=== PATIENT | male | born 1995 | race Caucasian/White ===

== ENCOUNTER 2016-10-04 12:01 | Emergency (ER) | payer BC, OTHER ==
[~2016-10-04] VITALS: Ht 182.9 cm; Wt 111.4 kg
[2016-10-04 12:01] VITALS: BP 146/81
[2016-10-04] MEDS ORDERED: CYCL10TA PO (12:27)
[2016-10-04] MEDS ORDERED: IBUP-1022 PO (12:27)
== END 2016-10-04 12:42 | disposition home or self-care (01) ==
LOC: M ED 12:01
DX: M54.5 Low back pain (principal); G89.29 Other chronic pain

== ENCOUNTER 2017-06-07 10:34 | Emergency (ER) | payer BC | END 2017-06-07 13:09 | disposition home or self-care (01) | LOC: M ED 10:34 | DX: K01.1 Impacted teeth (principal); Z79.899 Other long term (current) drug therapy | CPT/HCPCS: 99282 ==

== ENCOUNTER 2019-05-23 23:12 | Emergency (ER) | payer BC ==
[~2019-05-23] VITALS: Ht 177.8 cm; Wt 129.6 kg
[~2019-05-23 23:12] MED LIST: AUGM875T28 PO; CYCL10TA PO; GABA-843 PO; HYDR-3715 PO; IBUP-1022 PO
[2019-05-23] MEDS ORDERED: VALS1TAB66 (23:28)
[2019-05-23] MEDS ORDERED: CELE1CAP9 (23:28)
[2019-05-24] VITALS: BP 120/56
[2019-05-24] MEDS ORDERED: GI COCKTAIL 50ML BTL(HYOSCYAMINE/MAALOX/LIDOCAINE VISCOUS)(1:3:1) PO ONE (00:15)
[2019-05-24 00:24] LABS: BASO % 0.3 % (0.0-1.0); EOS # 0.1 10^3/uL (0.0-0.5); EOS % 2.2 % (0.0-3.0); HEMOGLOBIN 15.6 g/dl (13.5-17.5); LYMPH # 2.2 10^3/uL (1.5-5.0); LYMPH % 36.5 % (24.0-44.0); MEAN CORPUSCULAR HEMOGLOBIN 32.5 pg (27.0-33.0); MEAN CORPUSCULAR HGB CONC 34.7 g/dl (32.0-36.5); MEAN CORPUSCULAR VOLUME 93.8 fl (80.0-96.0); MONO # 0.4 10^3/uL (0.0-0.8); MONO % 6.7 % (0.0-5.0); NEUTROPHILS # 3.2 10^3/uL (1.5-8.5); PLATELET COUNT, AUTOMATED 269 10^3/uL (150-450)
[2019-05-24 00:30] LABS: BLOOD UREA NITROGEN 10 MG/DL (7-18); CALCIUM LEVEL 8.8 MG/DL (8.5-10.1); CARBON DIOXIDE LEVEL 22 MEQ/L (21-32); CHLORIDE LEVEL 114 MEQ/L (98-107); CPK CREATINE PHOSPHOKINASE 583 U/L (39-308); CREATININE FOR GFR 0.95 MG/DL (0.70-1.30); GLOMERULAR FILTRATION RATE > 60.0 (>60); GLUCOSE, FASTING 91 MG/DL (70-100); MB/CK RELATIVE INDEX 0.34 (< OR =4); POTASSIUM SERUM 5.1 MEQ/L (3.5-5.1); SODIUM LEVEL 143 MEQ/L (136-145); TROPONIN I < 0.02 NG/ML (< 0.10)
[2019-05-24 00:59] LABS: ALBUMIN 4.1 GM/DL (3.2-5.2); ALT/SGPT 64 U/L (12-78); BILIRUBIN,DIRECT < 0.1 MG/DL (0.0-0.2); BILIRUBIN,TOTAL 0.4 MG/DL (0.2-1.0); LIPASE 119 U/L (73-393)
[2019-05-24] MEDS ORDERED: NS 1,000 ML IV ONE (01:15)
[2019-05-24 01:22] LABS: ETHYL ALCOHOL (ETHANOL) 0.275 % (0.000-0.010)
[2019-05-24] MEDS ORDERED: ISOVUE-370 76% 100ML VIAL (Q9967) As Ordered ONE (02:16)
--- NOTE | 2019-05-24 02:50 | REPVR ---
PROCEDURE INFORMATION: Exam: CT Angiography Chest With Contrast Exam date and time: 05/24/2019 2:11 AM Age: 23 years old Clinical indication: Chest pain; Type not specified; Additional info: Chest pain/abdominal pain TECHNIQUE: Imaging protocol: Computed tomographic angiography of the chest with intravenous contrast. 3D rendering: MIP and/or 3D reconstructed images were created by the technologist. Radiation optimization: All CT scans at this facility use at least one of these dose optimization techniques: automated exposure control; mA and/or kV adjustment per patient size (includes targeted exams where dose is matched to clinical indication); or iterative reconstruction. Contrast material: ISO; Contrast volume: 100 ml; Contrast route: AC; COMPARISON: CR PORTABLE CHEST X-RAY 05/23/2019 11:39 PM FINDINGS: Pulmonary arteries: Aberrant aorta and pulmonary artery. The aorta is tortuous. The main pulmonary artery extends toward the right of the aortic arch and then divides with the left main pulmonary artery extending along the arch toward the left and the right pulmonary artery extending along the right aspect of the arch into the right lung. The main pulmonary artery measures 22 mm. No pulmonary embolism is identified. Aorta: The ascending thoracic aorta measures 41 mm. Other arteries: The left vertebral artery originates directly from the arch. Lungs: Mild dependent atelectasis in the lower lobes. Minimal ground-glass infiltrates are not excluded. Pleural space: Unremarkable. No pneumothorax. No pleural effusion. Heart: Unremarkable. No cardiomegaly. No pericardial effusion. Lymph nodes: Unremarkable. No enlarged lymph nodes. Bones/joints: Unremarkable. No acute fracture. Soft tissues: Unremarkable. IMPRESSION: 1. 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 2. Mild bilateral lower lobe dependent atelectasis. Minimal ground-glass infiltrates are not excluded. 3. Otherwise negative CTA chest. No pulmonary embolism is identified. Electronically signed by: Zheng Mchugh On 05/24/2019 02:50:17 AM
--- NOTE | 2019-05-24 02:54 | REPVR ---
PROCEDURE INFORMATION: Exam: CT Abdomen And Pelvis With Contrast Exam date and time: 05/24/2019 2:11 AM Age: 23 years old Clinical indication: Abdominal pain; Generalized; Additional info: Chest pain/abdominal pain TECHNIQUE: Imaging protocol: Computed tomography of the abdomen and pelvis with intravenous contrast. Radiation optimization: All CT scans at this facility use at least one of these dose optimization techniques: automated exposure control; mA and/or kV adjustment per patient size (includes targeted exams where dose is matched to clinical indication); or iterative reconstruction. Contrast material: ISO; Contrast volume: 100 ml; Contrast route: AC; COMPARISON: No relevant prior studies available. FINDINGS: Lungs: Dependent atelectasis in the lower lobes. Liver: The liver attenuation is 61 Hounsfield units and the spleen is 92 Hounsfield units. Gallbladder and bile ducts: Normal. No calcified stones. No ductal dilation. Pancreas: Normal. No ductal dilation. Spleen: Normal. No splenomegaly. Adrenals: Normal. No mass. Kidneys and ureters: Normal. No hydronephrosis. Stomach and bowel: Unremarkable. No obstruction. No mucosal thickening. Appendix: A normal appendix is seen. Intraperitoneal space: Somewhat marginated induration of central mesentery. Vasculature: Unremarkable. No abdominal aortic aneurysm. Lymph nodes: Unremarkable. No enlarged lymph nodes. Bladder: Unremarkable as visualized. Reproductive: Unremarkable as visualized. Bones/joints: Unremarkable. No acute fracture. Soft tissues: Unremarkable. IMPRESSION: 1. Slightly marginated induration of central mesentery which may reflect minimal mesenteric panniculitis. 2. Otherwise negative CT abdomen/pelvis. Electronically signed by: Zheng Mchugh On 05/24/2019 02:54:35 AM
[2019-05-24] MEDS ORDERED: OMEP40CA97 PO (03:43)
[2019-05-24] MEDS ORDERED: SUCR1TA PO (03:43)
--- NOTE | 2019-05-24 07:13 | REP ---
Clinical: Acute chest pain . Comparison: None . Findings: The mediastinum and cardiac silhouette are stable and within normal limits for portable technique. The lung cintron are clear without acute consolidation, effusion, or pneumothorax. Skeletal structures are intact. Impression: No acute cardiopulmonary process appreciated. Electronically Signed by Lisandro Cardenas MD 05/24/2019 07:04 A
--- NOTE | 2019-05-24 12:19 | ECGEPIP ---
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
--- NOTE | 2019-05-25 14:06 | ED PDOC ---
Post-Departure Follow-Up dr mejía faxed formal report of ct abd/p for fu Brian Priest MD May 25, 2019 14:06
--- NOTE | 2019-05-25 14:06 | ED PDOC ---
Post-Departure Follow-Up dr mejía also faxed formal report of cta chest for fu Brian Priest MD May 25, 2019 14:06
== END 2019-05-24 04:05 | disposition home or self-care (01) ==
LOC: M ED 23:12 → EDBD 23:12 → M ED 05-24 04:05
DX: K21.9 Gastro-esophageal reflux disease without esophagitis (principal); K29.70 Gastritis, unspecified, without bleeding; I25.10 Atherosclerotic heart disease of native coronary artery without angina pectoris; Z79.899 Other long term (current) drug therapy
CPT/HCPCS: 71045; 71275; 74177; 80048; 80076; 82550; 82553; 83690; 84484; 85025; 93005; 93041; 94760; 96360; 96361; 99285; G0480; Q9967

== ENCOUNTER → 2019-06-06 | Outpatient (CLI) | payer BC ==
[~2019-06-06] MED LIST changes: +CELE1CAP9; +OMEP40CA97 PO; +SUCR1TA PO; +VALS1TAB66
== END ==
LOC: M LABSMTC 11:31
PROVIDERS: ATTEND Family Medicine
DX: Z11.59 Encounter for screening for other viral diseases (principal); Z20.828 Contact with and (suspected) exposure to other viral communicable diseases

== ENCOUNTER → 2019-07-07 | Outpatient (REF) | payer BC ==
[~2019-07-07] MED LIST changes: +CYCL-707 PO; -CYCL10TA PO
== END ==
LOC: M LAB REF 17:13
PROVIDERS: ATTEND Nurse Practitioner Adult Health
DX: N52.9 Male erectile dysfunction, unspecified (principal); Z83.2 Family history of diseases of the blood and blood-forming organs and certain disorders involving the immune mechanism

== ENCOUNTER → 2019-10-05 | Outpatient (CLI) | payer BC ==
[2019-11-04 13:01] LABS: COLLAGEN EPINEPHRINE 142 SECONDS (74-162)
[2019-11-04 13:02] LABS: INR 1.07; PROTHROMBIN TIME 14.1 SECONDS (11.8-14.0)
[2019-11-04 13:05] LABS: PLATELET COUNT, AUTOMATED 232 10^3/uL (150-450)
== END ==
LOC: M LAB 12:16
PROVIDERS: ATTEND Physician Assistant
DX: M51.37 Other intervertebral disc degeneration, lumbosacral region (principal)

== ENCOUNTER → 2019-11-28 | Outpatient (REF) | payer BC ==
[2019-11-28 18:41] LABS: HEPATITIS C VIRUS ABY INDEX 0.1 INDEX (<0.8)
== END ==
LOC: M LAB REF 17:26
PROVIDERS: ATTEND Nurse Practitioner Adult Health
DX: L81.8 Other specified disorders of pigmentation (principal); R19.7 Diarrhea, unspecified; I10 Essential (primary) hypertension; Z87.74 Personal history of (corrected) congenital malformations of heart and circulatory system

== ENCOUNTER → 2020-03-22 | Outpatient (CLI) | payer BC ==
[~2020-03-22] MED LIST changes: +E-Z-PAQUE 96% w/w SUSP 176GM BTL As Ordered ONE; +GABA-282 PO; -GABA-843 PO
[2020-03-22 09:23] LABS: FREE T4 0.92 NG/DL (0.76-1.46); THYROID STIMULATING HORMONE 1.31 uIU/ML (0.358-3.740)
--- NOTE | 2020-03-22 17:52 | REP ---
INDICATION: [facility]. COMPARISON: None TECHNIQUE: This procedure was performed by ANASTASIA oYung, under the direct supervision of Dr. Hopkins. Images were reviewed with Dr. Hopkins prior to dictation. Liquid barium was administered and the barium column was followed through the small bowel to the level of the terminal ileum. FINDINGS: The medicine technologist film shows no organomegaly or pathological masses. The intestinal gas pattern is unremarkable. Small bowel transit time is approximately 120 minutes. During fluoroscopy gentle palpation shows all loops are freely movable and pliable. There is no fixed angulated loops. The small bowel mucosal pattern is normal in course and caliber. There is no transition to suggest a partial small bowel obstruction. Spot filming of the terminal ileum shows it to be unremarkable. IMPRESSION: Unremarkable small bowel follow-through. 0.4 minutes of fluoroscopy time was utilized for this procedure. Some fluoroscopic images are performed with last image hold technology. These images require no additional radiation. <Electronically signed by Veronica Corrigan > 03/22/20 1341 <Electronically signed by Herberth Hopkins > 03/22/20 [id number]
== END ==
LOC: M RAD 07:41 → M LAB 07:41
PROVIDERS: ATTEND Internal Medicine Gastroenterology
DX: R19.7 Diarrhea, unspecified (principal)

== ENCOUNTER → 2020-03-25 | Outpatient (REF) | payer BC ==
[~2020-03-25] MED LIST changes: -E-Z-PAQUE 96% w/w SUSP 176GM BTL As Ordered ONE
== END ==
LOC: M LAB REF 11:12
PROVIDERS: ATTEND Internal Medicine Gastroenterology
DX: R19.7 Diarrhea, unspecified (principal)

== ENCOUNTER → 2020-05-05 | Outpatient (CLI) | payer BC | LOC: M LABSMTC 08:42 | PROVIDERS: ATTEND Anesthesiology | DX: Z01.812 Encounter for preprocedural laboratory examination (principal); Z20.822 Contact with and (suspected) exposure to COVID-19 ==

== ENCOUNTER 2020-05-10 11:54 | Day surgery (SDC) | payer BC ==
[~2020-05-10] VITALS: Ht 182.9 cm; Wt 122.0 kg
[~2020-05-10 11:54] MED LIST changes: +BUSP5TA; +NS 1,000 ML IV ONE; +PREG150C; +TRAM50TA2
[2020-05-10] MEDS ORDERED: fentaNYL 100 MCG/2 ML INJECTION (J3010) As Ordered ONE (12:53)
[2020-05-10] MEDS ORDERED: propofoL 200 MG/20 ML VIAL As Ordered ONE (12:53)
[2020-05-10] MEDS ORDERED: LIDOCAINE 2% 100MG/5ML SDV (FOR ANES.) As Ordered ONE (12:53)
--- NOTE | 2020-05-10 13:37 | ROOR ---
Patient Name: Nile Khalil Procedure Date: 05/10/2020 1:23 PM Date of : 1995 Age: 24 Room: [facility] Gender: Male Note Status: Finalized Procedure: Upper GI endoscopy Indications: Epigastric abdominal pain Providers: Lester DAWN MD Referring MD: Marily Hall NP Requesting Provider: Medicines: Monitored Anesthesia Care Complications: No immediate complications. Procedure: Pre-Anesthesia Assessment: - The heart rate, respiratory rate, oxygen saturations, blood pressure, adequacy of pulmonary ventilation, and response to care were monitored throughout the procedure. The Endoscope was introduced through the mouth, and advanced to the second part of duodenum. The upper GI endoscopy was accomplished without difficulty. The patient tolerated the procedure well. Findings: The examined esophagus was normal. The entire examined stomach was normal. The examined duodenum was normal. Impression: - Normal esophagus. - Normal stomach. - Normal examined duodenum. - No specimens collected. Recommendation: - Follow an antireflux regimen. - Observe patient's clinical course. Procedure Code(s): --- Professional --- 34534, Esophagogastroduodenoscopy, flexible, transoral; diagnostic, including collection of specimen(s) by brushing or washing, when performed (separate procedure) Diagnosis Code(s): --- Professional --- R10.13, Epigastric pain CPT copyright 2019 [employer]. All rights reserved. The codes documented in this report are preliminary and upon keyboard instrument tuner review may be revised to meet current compliance requirements. Lester Dawn MD Lester DAWN MD 05/10/2020 1:36:39 PM Electronically signed by Lester DAWN MD Number of Addenda: 0 Note Initiated On: 05/10/2020 1:23 PM Estimated Blood Loss: Estimated blood loss: none.
--- NOTE | 2020-05-10 13:56 | ROOR ---
Patient Name: Nile Khalil Procedure Date: 05/10/2020 1:24 PM Date of : 1995 Age: 24 Room: [facility] Gender: Male Note Status: Finalized Procedure: Colonoscopy Indications: Chronic diarrhea Providers: Lester DAWN MD Referring MD: Marily Hall NP Requesting Provider: Medicines: Monitored Anesthesia Care Complications: No immediate complications. Procedure: Pre-Anesthesia Assessment: - The heart rate, respiratory rate, oxygen saturations, blood pressure, adequacy of pulmonary ventilation, and response to care were monitored throughout the procedure. The Colonoscope was introduced through the anus and advanced to 10 cm into the ileum. The colonoscopy was performed without difficulty. The patient tolerated the procedure well. The quality of the bowel preparation was good. Findings: The perianal and digital rectal examinations were normal. A 5 mm polyp was found in the proximal/upper rectum. The polyp was semi-pedunculated. The polyp was removed with a hot snare. Resection and retrieval were complete. The exam was otherwise normal throughout the examined colon. The terminal ileum appeared normal. Biopsies for histology were taken with a cold forceps from the entire colon for evaluation of microscopic colitis. Fluid aspiration for Clostridium difficile was performed. Impression: - One 5 mm polyp in the rectum, removed with a hot snare. Resected and retrieved. - The examined portion of the ileum was normal. - Biopsies were taken with a cold forceps from the entire colon for evaluation of microscopic colitis. - Fluid aspiration was performed. Recommendation: - Telephone endoscopist for pathology results in 2 weeks. Procedure Code(s): --- Professional --- 53429, Colonoscopy, flexible; with removal of tumor(s), polyp(s), or other lesion(s) by snare technique 96358, 59, Colonoscopy, flexible; with biopsy, single or multiple Diagnosis Code(s): --- Professional --- K52.9, Noninfective gastroenteritis and colitis, unspecified K62.1, Rectal polyp CPT copyright 2019 [employer]. All rights reserved. The codes documented in this report are preliminary and upon creative arts therapist review may be revised to meet current compliance requirements. eLster Dawn MD Lester DAWN MD 05/10/2020 1:55:54 PM Electronically signed by Lester DAWN MD Number of Addenda: 0 Note Initiated On: 05/10/2020 1:24 PM Estimated Blood Loss: Estimated blood loss: none.
[2020-05-10 14:10] VITALS: BP 130/63
[2020-05-10 15:36] LABS: CLOSTRIDIUM DIFFICILE PCR POSITIVE (NEGATIVE)
== END 2020-05-10 14:18 | disposition home or self-care (01) ==
LOC: M OPP 11:54
PROVIDERS: ATTEND Internal Medicine Gastroenterology
DX: K62.1 Rectal polyp (principal); K52.9 Noninfective gastroenteritis and colitis, unspecified; R10.13 Epigastric pain; F17.220 Nicotine dependence, chewing tobacco, uncomplicated; I10 Essential (primary) hypertension; Z80.0 Family history of malignant neoplasm of digestive organs; Z79.891 Long term (current) use of opiate analgesic; Z79.899 Other long term (current) drug therapy; Z88.0 Allergy status to penicillin
CPT/HCPCS: 43235; 45380; 45385; 87493; 88305; J3010

== ENCOUNTER 2020-06-25 08:49 | Emergency (ER) | payer BC ==
[~2020-06-25] VITALS: Ht 182.9 cm; Wt 120.5 kg
[~2020-06-25 08:49] MED LIST changes: -NS 1,000 ML IV ONE
[2020-06-25] MEDS ORDERED: NS 1,000 ML IV ONE (09:25)
[2020-06-25 10:21] LABS: BASO % 0.3 % (0.0-1.0); EOS # 0.1 10^3/uL (0.0-0.5); EOS % 1.1 % (0.0-3.0); HEMATOCRIT 52.2 % (42.0-52.0); HEMOGLOBIN 17.3 g/dl (13.5-17.5); LYMPH # 1.1 10^3/uL (1.5-5.0); LYMPH % 14.2 % (24.0-44.0); MEAN CORPUSCULAR HEMOGLOBIN 30.6 pg (27.0-33.0); MEAN CORPUSCULAR HGB CONC 33.1 g/dl (32.0-36.5); MEAN CORPUSCULAR VOLUME 92.2 fl (80.0-96.0); MONO # 0.4 10^3/uL (0.0-0.8); MONO % 4.4 % (2.0-8.0); NEUTROPHILS # 6.3 10^3/uL (1.5-8.5); NEUTROPHILS % 79.7 % (36.0-66.0); PLATELET COUNT, AUTOMATED 303 10^3/uL (150-450); RED BLOOD COUNT 5.66 10^6/uL (4.30-6.10); WHITE BLOOD COUNT 7.9 10^3/uL (4.0-10.0)
[2020-06-25 11:01] LABS: ALBUMIN 4.6 GM/DL (3.2-5.2); ALT/SGPT 48 U/L (12-78); AMYLASE 55 U/L (25-115); BILIRUBIN,DIRECT 0.3 MG/DL (0.0-0.2); BILIRUBIN,TOTAL 1.1 MG/DL (0.2-1.0); CK-MB VALUE MASS 1.1 NG/ML (<3.6); CPK CREATINE PHOSPHOKINASE 147 U/L (39-308); FREE T4 1.05 NG/DL (0.76-1.46); LIPASE 76 U/L (73-393); MB/CK RELATIVE INDEX 0.75 (< OR =4); TOTAL PROTEIN 8.3 GM/DL (6.4-8.2); TROPONIN I < 0.02 NG/ML (< 0.10)
[2020-06-25] MEDS ORDERED: KETOROLAC 30 MG/ML 1ML VIAL IV ONE (11:20)
[2020-06-25] MEDS ORDERED: ISOVUE-370 76% 100ML VIAL As Ordered ONE (12:04)
--- NOTE | 2020-06-25 12:37 | REP ---
INDICATION: LLQ pain, h/o c.diff. COMPARISON: Comparison CT study May 24, 2019.. TECHNIQUE: Helical scanning was acquired and 4 mm axial images are re-formatted. Coronal and sagittal MPR images were generated and reviewed. The contrast enhancement dose is 100 mL of intravenous Isovue 370. FINDINGS: Preliminary digital reefer truck driver radiograph demonstrates an unremarkable bowel gas pattern. Cardiac silhouette is prominent as on chest x-ray May 23, 2019. On axial CT images, the lung bases are clear. There is no evidence of pleural effusion or upper abdominal ascites. The liver is normal in size homogeneous in texture. spleen size is borderline but the spleen is homogeneous. No focal lesion. There is a small accessory splenule. Normal adrenal glands are observed. No abnormality is noted in the pancreas or in the gallbladder. The kidneys enhance symmetrically and are morphologically intact. No retroperitoneal mass or adenopathy is seen. Small and large intestinal bowel loops are unremarkable in the upper abdomen. Pelvic CT images demonstrate a normal appendix in the right lower mid pelvis. Small and large bowel loops are unremarkable in the pelvis. Urinary bladder, seminal vesicles, and prostate are unremarkable. No abdominal wall defect is seen. Bone window settings show mild degenerative disc narrowing at L5-S1. No bony destructive lesion is seen. IMPRESSION: No acute intra-abdominal or pelvic abnormality. Normal appendix. <Electronically signed by Da Lester > 06/25/20 [id number]
[2020-06-25 15:07] VITALS: BP 155/74
--- NOTE | 2020-06-27 12:18 | ECGEPIP ---
[facility] - ED Test Date: 2020-06-25 Pat Name: BERNICE FLORENTINO Department: Room: - Gender: Male Adult Care Provider: judie : 1995 Requested By: MARCELINA English PA-C Order Number: [id number] Reading MD: Magaly Anthony Measurements Intervals [place] Rate: 66 P: 23 ID: 140 QRS: 50 QRSD: 82 T: 76 QT: 404 QTc: 423 Interpretive Statements Normal sinus rhythm NSTTW abnormalities decreased rate 05/23/19 Electronically Signed on 06-27-2020 12:18:50 EDT by Magaly Anthony
== END 2020-06-25 15:09 | disposition home or self-care (01) ==
LOC: M ED 08:49
DX: R10.9 Unspecified abdominal pain (principal); R42 Dizziness and giddiness; R19.7 Diarrhea, unspecified; R79.89 Other specified abnormal findings of blood chemistry; R94.31 Abnormal electrocardiogram [ECG] [EKG]; I10 Essential (primary) hypertension; K21.9 Gastro-esophageal reflux disease without esophagitis; Z87.74 Personal history of (corrected) congenital malformations of heart and circulatory system; Z87.19 Personal history of other diseases of the digestive system; Z86.19 Personal history of other infectious and parasitic diseases; Z98.890 Other specified postprocedural states
CPT/HCPCS: 36415; 74177; 80047; 80076; 81001; 82150; 82550; 82553; 83690; 84439; 84443; 84484; 85025; 87040; 87798; 93005; 96361; 96374; 99284; J1885; Q9967

== ENCOUNTER 2020-08-01 08:56 | Emergency (ER) | payer BC ==
[~2020-08-01] VITALS: Ht 180.3 cm; Wt 121.1 kg
[2020-08-01 09:57] LABS: HEMATOCRIT 47.2 % (42.0-52.0); HEMOGLOBIN 15.6 g/dl (13.5-17.5); MEAN CORPUSCULAR HEMOGLOBIN 30.2 pg (27.0-33.0); MEAN CORPUSCULAR HGB CONC 33.1 g/dl (32.0-36.5); MEAN CORPUSCULAR VOLUME 91.3 fl (80.0-96.0); PLATELET COUNT, AUTOMATED 233 10^3/uL (150-450); RED BLOOD COUNT 5.17 10^6/uL (4.30-6.10); WHITE BLOOD COUNT 4.9 10^3/uL (4.0-10.0)
[2020-08-01 10:15] LABS: AMPHETAMINES LEVEL URINE NEGATIVE (NEGATIVE); BARBITURATES URINE NEGATIVE (NEGATIVE); BENZODIAZEPINES URINE POSITIVE (NEGATIVE); CANNABINOIDS URINE POSITIVE (NEGATIVE); COCAINE METABOLITE URINE NEGATIVE (NEGATIVE); METHADONE URINE NEGATIVE (NEGATIVE); OPIATES URINE NEGATIVE (NEGATIVE); PHENCYCLIDINE URINE NEGATIVE (NEGATIVE)
[2020-08-01 10:28] LABS: ACETAMINOPHEN LEVEL < 2.0 UG/ML (10.0-30.0); ALBUMIN 4.1 GM/DL (3.2-5.2); ALT/SGPT 43 U/L (12-78); BILIRUBIN,DIRECT 0.2 MG/DL (0.0-0.2); BLOOD UREA NITROGEN 13 MG/DL (7-18); CALCIUM LEVEL 9.2 MG/DL (8.5-10.1); CARBON DIOXIDE LEVEL 26 MEQ/L (21-32); CHLORIDE LEVEL 109 MEQ/L (98-107); ETHYL ALCOHOL (ETHANOL) < 0.003 % (0.000-0.010); GLOMERULAR FILTRATION RATE > 60.0 (>60); GLUCOSE, FASTING 114 MG/DL (70-100); POTASSIUM SERUM 4.9 MEQ/L (3.5-5.1); SALICYLATE LEVEL < 1.7 MG/DL (5.0-30.0); SODIUM LEVEL 140 MEQ/L (136-145); TOTAL PROTEIN 7.5 GM/DL (6.4-8.2)
[2020-08-01] MEDS ORDERED: ALPRAZolam 0.5 MG TAB PO ONE ×2 (14:30→21:40)
[2020-08-01] MEDS ORDERED: KETOROLAC TROMETHAMINE 10 MG TAB PO ONE (17:00)
[2020-08-01 17:11] VITALS: BP 116/64
[2020-08-01] MEDS ORDERED: NICOTINE 21MG/24HR 1 EA TRANSDERMAL TD ONE (18:00)
[2020-08-01 19:10] LABS: RSV AMPLIFICATION NEGATIVE (NEGATIVE)
[2020-08-01] MEDS ORDERED: NICOTINE POLACRILEX 2 MG GUM PO ONE (19:50)
[2020-08-01] MEDS ORDERED: ACETAMINOPHEN TAB 650MG DOSE (2X325MG) PO ONE (19:50)
--- NOTE | 2020-08-01 20:00 | ECGEPIP ---
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
== END 2020-08-02 00:04 ==
LOC: M ED 08:56
DX: R45.851 Suicidal ideations (principal); F43.10 Post-traumatic stress disorder, unspecified; F33.9 Major depressive disorder, recurrent, unspecified; I10 Essential (primary) hypertension; K21.9 Gastro-esophageal reflux disease without esophagitis; Z88.0 Allergy status to penicillin

== ENCOUNTER → 2021-04-18 | Outpatient (CLI) | payer BC ==
[~2021-04-18] MED LIST changes: +OMEP40CA4 PO; -OMEP40CA97 PO
[2021-04-18 11:58] LABS: APPEARANCE, URINE CLEAR (CLEAR); BACTERIA, URINE AUTO NEGATIVE (NEGATIVE); BILIRUBIN, URINE AUTO NEGATIVE (NEGATIVE); BLOOD, URINE BLOOD NEGATIVE (NEGATIVE); COLOR, URINE YELLOW (YELLOW); GLUCOSE, URINE (UA) AUTO NEGATIVE (NEGATIVE); KETONE, URINE AUTO NEGATIVE (NEGATIVE); LEUKOCYTE ESTERASE, URINE AUTO NEGATIVE (NEGATIVE); NITRITE, URINE AUTO NEGATIVE (NEGATIVE); PROTEIN, URINE AUTO NEGATIVE (NEGATIVE); RBC, URINE AUTO 1 /HPF (0-3); SPECIFIC GRAVITY URINE AUTO 1.016 (1.002-1.035); SQUAMOUS EPITHELIAL CELL UR AU 0 /HPF (0-6); UROBILINOGEN, URINE AUTO 0.2 mg/dL (0.0-2.0); WBC, URINE AUTO 0 /HPF (0-3)
[2021-04-18 12:42] LABS: ALBUMIN 4.4 GM/DL (3.2-5.2); ALT/SGPT 43 U/L (12-78); BILIRUBIN,TOTAL 0.7 MG/DL (0.2-1.0); BLOOD UREA NITROGEN 15 MG/DL (7-18); CALCIUM LEVEL 9.9 MG/DL (8.5-10.1); CARBON DIOXIDE LEVEL 26 MEQ/L (21-32); CHLORIDE LEVEL 105 MEQ/L (98-107); CREATININE FOR GFR 1.26 MG/DL (0.70-1.30); FERRITIN 72 NG/ML (26-388); GLOMERULAR FILTRATION RATE > 60.0 (>60); GLUCOSE, FASTING 85 MG/DL (70-100); IRON (FE) 133 UG/DL (65-175); LIPASE 84 U/L (73-393); PERCENT SATURATION 34.2 % (19.7-50.0); POTASSIUM SERUM 4.5 MEQ/L (3.5-5.1); SODIUM LEVEL 139 MEQ/L (136-145); TOTAL IRON BINDING CAPACITY 389 UG/DL (250-450)
== END ==
LOC: M RAD 09:08
PROVIDERS: ATTEND Physician Assistant
DX: R10.31 Right lower quadrant pain (principal); N50.811 Right testicular pain

== ENCOUNTER 2022-10-03 06:42 | Emergency (ER) | payer BC ==
[~2022-10-03] VITALS: Ht 177.8 cm; Wt 118.1 kg
[2022-10-03] MEDS ORDERED: HYDR-3363 PO (09:01)
[2022-10-03] MEDS ORDERED: CEPH250T PO (09:04)
[2022-10-03 09:34] VITALS: BP 146/84; TEMP 97.6; O2SAT 97
== END 2022-10-03 09:36 | disposition home or self-care (01) ==
LOC: M ED 06:42 → EDBD 06:42 → M ED 09:36
DX: L73.9 Follicular disorder, unspecified (principal); I10 Essential (primary) hypertension; F41.9 Anxiety disorder, unspecified; Z88.0 Allergy status to penicillin

== ENCOUNTER → 2023-03-18 | Outpatient (CLI) | payer BC ==
[~2023-03-18] MED LIST changes: +CELE0.09; -CELE1CAP9; +CEPH250T PO; +HYDR-3363 PO; -PREG150C; +PREG150C2
== END ==
LOC: M PLAIMG 09:14
PROVIDERS: ATTEND Family Medicine
DX: F10.90 Alcohol use, unspecified, uncomplicated (principal); R10.84 Generalized abdominal pain; M54.6 Pain in thoracic spine; Z53.9 Procedure and treatment not carried out, unspecified reason

== ENCOUNTER → 2023-03-19 | Outpatient (CLI) | payer BC ==
[2023-03-19 09:57] LABS: BASO % 0.4 % (0.0-1.0); EOS # 0.1 10^3/uL (0.0-0.5); EOS % 2.1 % (0.0-3.0); HEMOGLOBIN 16.2 g/dl (13.5-17.5); LYMPH # 1.5 10^3/uL (1.5-5.0); LYMPH % 29.4 % (24.0-44.0); MEAN CORPUSCULAR HEMOGLOBIN 31.2 pg (27.0-33.0); MEAN CORPUSCULAR HGB CONC 33.8 g/dl (32.0-36.5); MEAN CORPUSCULAR VOLUME 92.5 fl (80.0-96.0); MONO # 0.5 10^3/uL (0.0-0.8); MONO % 9.7 % (2.0-8.0); PLATELET COUNT, AUTOMATED 215 10^3/uL (150-450); RED BLOOD COUNT 5.19 10^6/uL (4.30-6.10); WHITE BLOOD COUNT 5.1 10^3/uL (4.0-10.0)
[2023-03-19 10:11] LABS: INR 1.11
[2023-03-19 10:20] LABS: ALBUMIN 4.3 G/DL (3.2-5.2); ALKALINE PHOSPHATASE 58 U/L (46-116); ALT/SGPT 68 U/L (7.0-40); AST/SGOT 26 U/L (<34); BILIRUBIN,TOTAL 0.7 MG/DL (0.3-1.2); BLOOD UREA NITROGEN 17 MG/DL (9-23); CALCIUM LEVEL 9.8 MG/DL (8.5-10.1); CARBON DIOXIDE LEVEL 28 MMOL/L (20-31); CHLORIDE LEVEL 104 MMOL/L (98-107); CHOLESTEROL LEVEL 168 MG/DL (<200); CHOLESTEROL RISK RATIO 2.96 (<5); CREATININE FOR GFR 0.99 MG/DL (0.70-1.30); GLOMERULAR FILTRATION RATE > 60.0 (>60); GLUCOSE, FASTING 88 MG/DL (60-100); HDL CHOLESTEROL 56.6 MG/DL (>40); LDL CHOLESTEROL 84.4 MG/DL (<100); NON-HDL-C 111.4 MG/DL; POTASSIUM SERUM 4.5 MMOL/L (3.5-5.1); SODIUM LEVEL 139 MMOL/L (136-145); TOTAL PROTEIN 7.4 G/DL (5.7-8.2); TRIGLYCERIDES LEVEL 135 MG/DL (<150)
== END ==
LOC: M PLAIMG 07:55
PROVIDERS: ATTEND Family Medicine
DX: M54.6 Pain in thoracic spine (principal); R10.84 Generalized abdominal pain; F10.90 Alcohol use, unspecified, uncomplicated

== ENCOUNTER → 2023-03-19 | Outpatient (CLI) | payer BC | LOC: M RAD 07:24 | PROVIDERS: ATTEND Family Medicine | DX: F10.90 Alcohol use, unspecified, uncomplicated (principal); R10.84 Generalized abdominal pain; K76.0 Fatty (change of) liver, not elsewhere classified ==

== ENCOUNTER → 2023-04-16 | Outpatient (CLI) | payer BC | LOC: M PLAIMG 12:09 | PROVIDERS: ATTEND Family Medicine | DX: M50.121 Cervical disc disorder at C4-C5 level with radiculopathy (principal); M47.814 Spondylosis without myelopathy or radiculopathy, thoracic region; M51.24 Other intervertebral disc displacement, thoracic region ==

== ENCOUNTER → 2023-06-02 | Outpatient (CLI) | payer BC ==
[2023-06-02 16:10] LABS: ALBUMIN 4.2 G/DL (3.2-5.2); ALKALINE PHOSPHATASE 65 U/L (46-116); ALT/SGPT 97 U/L (7.0-40); AST/SGOT 31 U/L (<34); BILIRUBIN,TOTAL 0.7 MG/DL (0.3-1.2); BLOOD UREA NITROGEN 14 MG/DL (9-23); CALCIUM LEVEL 9.7 MG/DL (8.5-10.1); CARBON DIOXIDE LEVEL 29 MMOL/L (20-31); CHLORIDE LEVEL 106 MMOL/L (98-107); CREATININE FOR GFR 0.96 MG/DL (0.70-1.30); GLOMERULAR FILTRATION RATE > 60.0 (>60); GLUCOSE, FASTING 84 MG/DL (60-100); POTASSIUM SERUM 4.1 MMOL/L (3.5-5.1); SODIUM LEVEL 141 MMOL/L (136-145); TOTAL PROTEIN 7.1 G/DL (5.7-8.2)
== END ==
LOC: M PLALAB 14:39
PROVIDERS: ATTEND Family Medicine
DX: I10 Essential (primary) hypertension (principal); E66.9 Obesity, unspecified

== ENCOUNTER → 2023-08-27 | Outpatient (CLI) | payer BC | LOC: M RAD 07:31 | PROVIDERS: ATTEND Family Medicine | DX: I10 Essential (primary) hypertension (principal) ==

== ENCOUNTER → 2024-02-02 | Outpatient (REF) | payer BC ==
[~2024-02-02] MED LIST changes: +GABA-1172 PO; -GABA-282 PO
== END ==
LOC: M SMT 12:56
PROVIDERS: ATTEND Urology
DX: Z30.2 Encounter for sterilization (principal)

== ENCOUNTER → 2024-03-30 | Outpatient (REF) | payer BC ==
[2024-03-30 13:57] LABS: SEMEN APPEARANCE OPAQUE (OPAQUE); SEMEN VISCOSITY LIQUID (LIQUID); SEMEN VOLUME 1.4 ml (2.0-5.0); SEMEN pH 8.5 (7.0-8.0); WBC CONCENTRATION <=1 M/ml (<=1 M/ml)
== END ==
LOC: M SMT 13:29
PROVIDERS: ATTEND Urology
DX: Z30.2 Encounter for sterilization (principal)

== ENCOUNTER 2024-12-16 23:19 | Emergency (ER) | payer BC ==
[~2024-12-16] VITALS: Ht 177.8 cm; Wt 115.9 kg
[~2024-12-16 23:19] MED LIST changes: -IBUP-1022 PO; +IBUP600T42 PO
[2024-12-17] MEDS: NS (Normal Saline) 0.9% 1,000 ML IV ONE (00:33)
[2024-12-17 00:38] LABS: BASO # 0.1 10^3/uL (0.0-0.2); BASO % 0.6 % (0.0-1.0); EOS # 0.8 10^3/uL (0.0-0.5); EOS % 8.6 % (0.0-3.0); LYMPH # 3.5 10^3/uL (1.5-5.0); LYMPH % 38.6 % (24.0-44.0); MONO # 0.6 10^3/uL (0.0-0.8); MONO % 6.3 % (2.0-8.0); NEUTROPHILS # 4.1 10^3/uL (1.5-8.5); NEUTROPHILS % 45.5 % (36.0-66.0); PLATELET COUNT, AUTOMATED 294 10^3/uL (150-450)
[2024-12-17 00:58] LABS: ETHYL ALCOHOL (ETHANOL) 0.207 % (0.000-0.010)
[2024-12-17 01:00] LABS: ALT/SGPT 57 U/L (7.0-40); AST/SGOT 31 U/L (<34); CALCIUM LEVEL 8.9 MG/DL (8.5-10.1); CARBON DIOXIDE LEVEL 20 MMOL/L (20-31); CHLORIDE LEVEL 107 MMOL/L (98-107); CREATININE FOR GFR 0.79 MG/DL (0.70-1.30); GLOMERULAR FILTRATION RATE > 90.0 (>60); POTASSIUM SERUM 4.7 MMOL/L (3.5-5.1); SALICYLATE LEVEL < 3.0 MG/DL (<30); SODIUM LEVEL 141 MMOL/L (136-145)
[2024-12-17 01:02] LABS: CPK CREATINE PHOSPHOKINASE 103 U/L (46-171)
[2024-12-17 01:26] LABS: AMPHETAMINES LEVEL URINE NEGATIVE (NEGATIVE); BARBITURATES URINE NEGATIVE (NEGATIVE); BENZODIAZEPINES URINE NEGATIVE (NEGATIVE); CANNABINOIDS URINE NEGATIVE (NEGATIVE); COCAINE METABOLITE URINE NEGATIVE (NEGATIVE); METHADONE URINE NEGATIVE (NEGATIVE); OPIATES URINE NEGATIVE (NEGATIVE); PHENCYCLIDINE URINE NEGATIVE (NEGATIVE)
[2024-12-17] MEDS: OVERDOSE RESCUE KIT XX SCH (08:33)
[2024-12-17 08:40] VITALS: BP 126/60; TEMP 98.6; O2SAT 100
== END 2024-12-17 08:43 | disposition home or self-care (01) ==
LOC: M ED 23:19
DX: F19.10 Other psychoactive substance abuse, uncomplicated (principal); I10 Essential (primary) hypertension; F17.200 Nicotine dependence, unspecified, uncomplicated; F10.10 Alcohol abuse, uncomplicated; Z88.0 Allergy status to penicillin; Z79.2 Long term (current) use of antibiotics; Z79.899 Other long term (current) drug therapy

== ENCOUNTER 2025-01-08 12:51 | Emergency (ER) | payer BC ==
[~2025-01-08] VITALS: Ht 177.8 cm; Wt 118.2 kg
[2025-01-08 13:04] VITALS: TEMP 98.5
[2025-01-08 13:47] LABS: BASO # 0.0 10^3/uL (0.0-0.2); BASO % 0.4 % (0.0-1.0); EOS # 0.2 10^3/uL (0.0-0.5); EOS % 3.9 % (0.0-3.0); LYMPH # 1.3 10^3/uL (1.5-5.0); LYMPH % 25.4 % (24.0-44.0); MONO # 0.5 10^3/uL (0.0-0.8); MONO % 8.9 % (2.0-8.0); NEUTROPHILS # 3.2 10^3/uL (1.5-8.5); NEUTROPHILS % 61.0 % (36.0-66.0); PLATELET COUNT, AUTOMATED 261 10^3/uL (150-450)
[2025-01-08] MEDS ORDERED: ONDANSETRON 4MG/2ML VIAL IV ONE (13:55)
[2025-01-08 14:18] LABS: ALT/SGPT 40 U/L (7.0-40); AST/SGOT 28 U/L (<34); MAGNESIUM LEVEL 1.8 MG/DL (1.8-2.4)
[2025-01-08] MEDS: SUCRALFATE 1 GM TAB PO ONE (14:18)
[2025-01-08] MEDS: PANTOPRAZOLE 40MG VIAL IV ONE (14:19)
[2025-01-08 14:20] LABS: T UPTAKE 29.2 % (22.5-37.0)
[2025-01-08 14:46] LABS: CALCIUM LEVEL 9.8 MG/DL (8.5-10.1); CARBON DIOXIDE LEVEL 29 MMOL/L (20-31); CHLORIDE LEVEL 102 MMOL/L (98-107); CREATININE FOR GFR 1.04 MG/DL (0.70-1.30); GLOMERULAR FILTRATION RATE > 90.0 (>60); POTASSIUM SERUM 4.4 MMOL/L (3.5-5.1); SODIUM LEVEL 141 MMOL/L (136-145)
[2025-01-08 14:49] LABS: THYROXINE (T4) 6.9 UG/DL (4.5-10.9)
[2025-01-08 15:00] VITALS: BP 134/83; O2SAT 99
[2025-01-08] MEDS ORDERED: OMEP40CA4 PO (15:02)
[2025-01-08] MEDS ORDERED: HYDR-3363 PO (15:02)
[2025-01-08 15:09] LABS: SOFIA COVID ANTIGEN NEGATIVE (NEGATIVE)
== END 2025-01-08 15:09 | disposition home or self-care (01) ==
LOC: M ED 12:51
DX: R41.9 Unspecified symptoms and signs involving cognitive functions and awareness (principal); R07.89 Other chest pain; R10.13 Epigastric pain; I10 Essential (primary) hypertension; Z88.0 Allergy status to penicillin
CPT/HCPCS: 71045; 80048; 80076; 83690; 83735; 84436; 84443; 84479; 85025; 85379; 86780; 87428; 93005; 96374; 96375; 99284; J2060; J2470

== ENCOUNTER → 2025-02-20 | Outpatient (CLI) | payer BC ==
[2025-02-20 11:38] LABS: PLATELET COUNT, AUTOMATED 289 10^3/uL (150-450)
[2025-02-20 11:45] LABS: ALT/SGPT 49 U/L (7.0-40); AST/SGOT 25 U/L (<34); CALCIUM LEVEL 9.5 MG/DL (8.5-10.1); CARBON DIOXIDE LEVEL 30 MMOL/L (20-31); CHLORIDE LEVEL 103 MMOL/L (98-107); CREATININE FOR GFR 0.98 MG/DL (0.70-1.30); GLOMERULAR FILTRATION RATE > 90.0 (>60); POTASSIUM SERUM 4.7 MMOL/L (3.5-5.1); SODIUM LEVEL 142 MMOL/L (136-145)
[2025-02-20 12:10] LABS: HIV 1&2 SCREEN NEGATIVE (NEGATIVE)
[2025-02-20 12:18] LABS: HEPATITIS C VIRUS ABY INDEX 0.22 INDEX (<0.8)
[2025-02-20 14:40] LABS: GC DNA AMPLIFICATION NEGATIVE (NEGATIVE)
== END ==
LOC: M PLALAB 08:33
PROVIDERS: ATTEND Family Medicine
DX: F11.20 Opioid dependence, uncomplicated (principal)